=== PATIENT | female | born 1955 | race Caucasian/White ===

== ENCOUNTER → 2017-04-30 | Outpatient (CLI) | payer OTHER | LOC: FIMAGING 10:11 | PROVIDERS: ATTEND Obstetrics & Gynecology | DX: Z12.31 Encounter for screening mammogram for malignant neoplasm of breast (principal) | CPT/HCPCS: G0202 ==

== ENCOUNTER → 2018-05-03 | Outpatient (CLI) | payer OTHER | LOC: FIMAGING 10:26 | PROVIDERS: ATTEND Internal Medicine Rheumatology | DX: Z12.31 Encounter for screening mammogram for malignant neoplasm of breast (principal); Z13.820 Encounter for screening for osteoporosis; M85.89 Other specified disorders of bone density and structure, multiple sites ==

== ENCOUNTER 2018-06-12 17:28 | Emergency (ER) | payer OTHER ==
[2018-06-12] MEDS ORDERED: LIDOCAINE 2% VISCOUS 15 ML UDCUP PO ONE (18:14)
--- NOTE | 2018-06-12 19:04 | EDPHY ---
H & P Stated Complaint: right leg lac while moving wood Time Seen by Provider: 06/12/18 18:00 HPI/ROS: Chief complaint: Skin tear to right leg History of present illness: 62-year-old female presents to the emergency department for skin tear to her right leg. She is on chronic steroids which makes her skin thin and brittle. She states she scraped against a piece of wood earlier today cutting it. Mild pain. Bleeding easily controlled with a dressing. No report of other injury. No abnormal coolness or paresthesias in the leg. She still ambulating without difficulty. She believes her tetanus is up-to-date but is not sure. - Personal History Current Tetanus/Diphtheria Vaccine: Yes Current Tetanus Diphtheria and Acellular Pertussis (TDAP): Yes Tetanus Vaccine Date: < 10 YRS - Medical/Surgical History Hx Asthma: Yes Hx Chronic Respiratory Disease: No Hx Diabetes: No Hx Cardiac Disease: No Hx Renal Disease: No Hx Cirrhosis: No Hx Alcoholism: No Hx HIV/AIDS: No Hx Splenectomy or Spleen Trauma: No Other PMH: asthma, arthritis, polymalgic rheumatical - Social History Smoking Status: Never smoked - Physical Exam Exam: General: Alert, nontoxic Skin: Skin tear to a anterior right lower leg. Exploration does not reveal foreign body. Musculoskeletal: Patient is moving the right lower leg without difficulty. Ambulating well. Vascular: DP and PT pulses 2+. Neurologic: Sensation intact throughout the right lower leg. Constitutional: Initial Vital Signs Temperature (C) 36.7 C 06/12/18 17:31 Heart Rate 83 06/12/18 17:31 Respiratory Rate 18 06/12/18 17:31 Blood Pressure 161/85 H 06/12/18 17:31 O2 Sat (%) 92 06/12/18 17:31 O2 Delivery Mode Room Air Allergies/Adverse Reactions: codeine [Codeine] Allergy (Intermediate, Verified 06/12/18 17:30) [facility] Allergy (Mild, Uncoded 05/03/13 16:38) NASAL CONGESTION/STUFFY NOSE/ITCHY EYES Home Medications: Medication Instructions Recorded *Pharmacist Completed 04/26/13 04/26/13 Please See Coments ALPRAZolam [Xanax 0.5 MG (RX)] 0.25 - 0.5 mg PO DAILY PRN 04/26/13 Cetirizine [ZyrTEC 10 mg (RX)] 10 mg PO DAILY PRN 04/26/13 Chlorpheniramine Maleate 4 mg PO BID PRN 04/26/13 Estrogen/Testosterone/Progesterone 1 tab PO DAILY 04/26/13 Fluticasone Nasal [Flonase Nasal 1 - 2 sprays NASAL BID PRN 04/26/13 [place] (RX)] Levothyroxine [Synthroid 88 mcg 88 mcg PO DAILY06 04/26/13 (RX)] Montelukast Sodium [Singulair 10 10 mg PO DAILY@1800 04/26/13 mg (RX)] Multivit-Min/FA/Lycopene/Lut 1 each PO DAILY 04/26/13 [Centrum Silver Tablet] Pantoprazole Sodium [Protonix 40mg 40 mg PO DAILY 04/26/13 (RX)] Zolpidem Tartrate [Ambien 5MG (RX)] 5 mg PO HS PRN 04/26/13 celeCOXIB [celeBREX (RX)] 100 mg PO HS 04/26/13 Albuterol Hfa Anes Only [Proair 2 puffs IH BID 05/03/13 Hfa Anes Only] Dulera Inhaler Strength Unknown 2 puffs IH BID 05/03/13 predniSONE 06/12/18 Medical Decision Making Procedures: The wound was anesthetized with topical lidocaine. It was cleaned. It was dressed according to skin tear protocol. ED Course/Re-evaluation: Patient seen under the supervision of my secondary supervising physician Dr. Priyanka Pardo. Patient presents for a skin tear to her right lower leg. Her leg is neurovascularly intact. Wound is cleaned. It is dressed according to skin tear protocol. She is not sure if her tetanus is up-to-date, although she believes it is. I have asked her to contact her primary care doctor on Thursday and ensure it is and if it is not to get one on Thursday. Home care is discussed. She is to follow up with her primary care doctor on Thursday for recheck of the wound as well. Return precautions were given. - Data Points Medications Given: Discontinued Medications Lidocaine (Lidocaine 2% Viscous) 5 ml PO EDNOW ONE Stop: 06/12/18 18:15 Last Admin: 06/12/18 18:25 Dose: 5 ml Departure - Departure Disposition: Home, Routine, Self-Care Clinical Impression: Skin tear of right lower leg without complication Qualifiers: Encounter type: initial encounter Qualified Code(s): S81.811A - Laceration without foreign body, right lower leg, initial encounter Condition: Good Instructions: Skin Tear (ED) Additional Instructions: Follow-up with your primary care doctor on Thursday for recheck Please talk with your primary care doctor on Thursday to see if your tetanus is up -to-date, if it is not get a new tetanus on Thursday If symptoms worsen or new symptoms develop return to the emergency room for recheck Referrals: OSCAR CHATTERJEE [Primary Care Provider] - As per Instructions
[2018-06-12 19:17] VITALS: BP 150/80
== END 2018-06-12 19:15 | disposition home or self-care (01) ==
DX: S81.811A Laceration without foreign body, right lower leg, initial encounter (principal); J45.909 Unspecified asthma, uncomplicated; W45.8XXA Other foreign body or object entering through skin, initial encounter